=== PATIENT | male | born 2000 | race Asian ===

== ENCOUNTER 2019-07-07 21:51 | Emergency (ER) | payer SELFPAY ==
[~2019-07-07] VITALS: Ht 165.1 cm; Wt 50.2 kg
[2019-07-08] MEDS ORDERED: LORAZEPAM 0.5MG TABLET PO ONE (05:15)
[2019-07-08 06:31] VITALS: BP 122/83
== END 2019-07-08 06:30 | disposition home or self-care (01) ==
LOC: ER 21:51
DX: F41.1 Generalized anxiety disorder (principal); F43.0 Acute stress reaction
CPT/HCPCS: 71045; 93005; 99283